=== PATIENT | female | born 1995 | race Two or more races ===

== ENCOUNTER 2019-04-10 12:54 | Emergency (ER) | payer MEDICAID ==
[~2019-04-10] VITALS: Ht 160 cm; Wt 51.7 kg
[2019-04-10 13:01] VITALS: BP 115/77
== END 2019-04-10 14:14 | disposition home or self-care (01) ==
LOC: ER 12:54
DX: M77.9 Enthesopathy, unspecified (principal)

== ENCOUNTER 2020-12-13 21:21 | Emergency (ER) | payer MEDICAID, OTHER ==
[~2020-12-13] VITALS: Ht 160 cm; Wt 51.7 kg
--- NOTE | 2020-12-13 21:25 | NUR ---
PATIENT CAME IN FOR GENERAL BODY RASH AND ITCHING, MOST AROUND RIGHT FOOT. PATIENT RECEVIED LEATHA HARDWICK YESTERDAY, MODERNA. PATIENT A/OX4 RR EVEN AND UNLABORED. WILL CONTINUE TO MONIOTR.
[2020-12-13] MEDS ORDERED: predniSONE 10 MG TABLET ONE (21:43)
[2020-12-13] MEDS ORDERED: diphenhydrAMINE HCL 50 MG CAPSULE ONE (21:43)
[2020-12-13] MEDS ORDERED: FAMOTIDINE (20 MG) 20 MG TABLET ONE (21:43)
[2020-12-13] MEDS ORDERED: PRED20TA PO (21:44)
[2020-12-13] MEDS ORDERED: FAMO-108 PO (21:44)
[2020-12-13 21:55] VITALS: BP 131/68
--- NOTE | 2020-12-13 21:55 | NUR ---
Patient discharged to home in stable condition. Rx and Written and verbal after care instructions given. Patient verbalizes understanding of instruction. ambulatory with a steady gait
[2020-12-13] MEDS ORDERED: predniSONE 10 MG TABLET PO ONE (22:00)
[2020-12-13] MEDS ORDERED: FAMOTIDINE (20 MG) 20 MG TABLET PO ONE (22:00)
[2020-12-13] MEDS ORDERED: diphenhydrAMINE HCL 50 MG CAPSULE PO ONE (22:00)
== END 2020-12-13 21:56 | disposition home or self-care (01) ==
LOC: ER 21:25
DX: L50.9 Urticaria, unspecified (principal)
CPT/HCPCS: 99284; J7512; Q0163